=== PATIENT | female | born 1990 | race Two or more races ===

== ENCOUNTER 2022-12-31 10:35 | Outpatient (CLI) | payer OTHER ==
[2022-12-31] MEDS ORDERED: FOLIC ACID0.8 M1 PO (13:53)
[2022-12-31] MEDS ORDERED: PRENATAL TABLE1 EAC1 PO (13:53)
== END 2022-12-31 12:44 | disposition home or self-care (01) ==
LOC: PRENATAL 10:35
PROVIDERS: ATTEND Obstetrics & Gynecology Maternal & Fetal Medicine
DX: O35.3XX0 Maternal care for (suspected) damage to fetus from viral disease in mother, not applicable or unspecified (principal); O44.00 Complete placenta previa NOS or without hemorrhage, unspecified trimester; O09.219 Supervision of pregnancy with history of pre-term labor, unspecified trimester; O09.529 Supervision of elderly multigravida, unspecified trimester; Z3A.19 19 weeks gestation of pregnancy

== ENCOUNTER 2022-12-31 12:55 | Day surgery (SDC) | payer OTHER ==
[~2022-12-31] VITALS: Ht 152.4 cm; Wt 68.0 kg
[2022-12-31 13:37] LABS: HEMATOCRIT 36.6 % (36.0-45.00); HEMOGLOBIN 11.7 g/dL (12.0-15.00); MEAN CELL VOLUME 82.6 fL (80.00-100.00); MEAN CORPUSCULAR HEMOGLOBIN 26.5 pg (27.00-32.0); MEAN CORPUSCULAR HGB CONC 32.1 g/dl (32.0-36.0); PLATELET COUNT 256 K/uL (150-450); RED BLOOD COUNT 4.44 M/uL (4.00-6.00); RED CELL DISTRIBUTION WIDTH 14.8 % (11.5-14.5)
[2022-12-31] MEDS ORDERED: PRENATAL TABLE1 EAC1 PO (13:53)
[2022-12-31] MEDS ORDERED: FOLIC ACID0.8 M1 PO (13:53)
[2022-12-31 13:56] LABS: INR 0.98; PARTIAL THROMBOPLASTIN TIME 29.5 SECONDS (22.0-34.0); PROTHROMBIN TIME 10.3 SECONDS (9.0-11.5)
== END 2022-12-31 23:55 | disposition home or self-care (01) ==
LOC: LDR 12:55 → CIR.AMB 12:55 → EDSTATUS 20:00 → CIR.AMB 23:55 → LDR 23:55
PROVIDERS: ATTEND Obstetrics & Gynecology Maternal & Fetal Medicine
DX: O34.32 Maternal care for cervical incompetence, second trimester (principal); Z3A.19 19 weeks gestation of pregnancy; Z20.822 Contact with and (suspected) exposure to COVID-19

== ENCOUNTER 2023-01-15 08:57 | Outpatient (CLI) | payer OTHER ==
[~2023-01-15 08:57] MED LIST: FOLIC ACID0.8 M1 PO; PRENATAL TABLE1 EAC1 PO
== END 2023-01-15 08:59 | disposition home or self-care (01) ==
LOC: PRENATAL 08:57
PROVIDERS: ATTEND Obstetrics & Gynecology Maternal & Fetal Medicine
DX: O09.219 Supervision of pregnancy with history of pre-term labor, unspecified trimester (principal); O09.529 Supervision of elderly multigravida, unspecified trimester; O26.879 Cervical shortening, unspecified trimester; Z3A.21 21 weeks gestation of pregnancy

== ENCOUNTER → 2023-02-06 13:54 | Outpatient (CLI) | payer OTHER | END | disposition home or self-care (01) | LOC: PRENATAL 13:54 | PROVIDERS: ATTEND Obstetrics & Gynecology Maternal & Fetal Medicine | DX: O26.849 Uterine size-date discrepancy, unspecified trimester (principal); O09.219 Supervision of pregnancy with history of pre-term labor, unspecified trimester; O26.879 Cervical shortening, unspecified trimester; O09.529 Supervision of elderly multigravida, unspecified trimester; Z3A.24 24 weeks gestation of pregnancy ==

== ENCOUNTER → 2023-03-08 | Outpatient (CLI) | payer OTHER | END | disposition home or self-care (01) | LOC: PRENATAL 12:53 | PROVIDERS: ATTEND Obstetrics & Gynecology Maternal & Fetal Medicine | DX: O26.849 Uterine size-date discrepancy, unspecified trimester (principal); O09.219 Supervision of pregnancy with history of pre-term labor, unspecified trimester; O09.529 Supervision of elderly multigravida, unspecified trimester; O26.879 Cervical shortening, unspecified trimester; Z3A.28 28 weeks gestation of pregnancy ==

== ENCOUNTER → 2023-04-17 09:38 | Outpatient (CLI) | payer OTHER | END | disposition home or self-care (01) | LOC: PRENATAL 09:38 | PROVIDERS: ATTEND Obstetrics & Gynecology Maternal & Fetal Medicine | DX: O26.849 Uterine size-date discrepancy, unspecified trimester (principal); O36.8199 Decreased fetal movements, unspecified trimester, other fetus; O09.219 Supervision of pregnancy with history of pre-term labor, unspecified trimester; O09.529 Supervision of elderly multigravida, unspecified trimester; O26.879 Cervical shortening, unspecified trimester; Z3A.34 34 weeks gestation of pregnancy ==